=== PATIENT | male | born 1980 | race Caucasian/White ===

== ENCOUNTER 2017-06-21 00:48 | Inpatient (IN) | payer OTHER ==
[2017-06-21] MEDS ORDERED: Acetaminophen 500 MG Tab PO ONE (01:34)
[2017-06-21] MEDS ORDERED: Ondansetron 4 MG Tab.DIS PO ONE (01:34)
[2017-06-21] MEDS ORDERED: Dicyclomine 10 MG Cap PO ONE (01:35)
--- NOTE | 2017-06-21 01:41 | EDM.PDOC ---
ED HPI GENERAL MEDICAL PROBLEM - General Chief Complaint: Abdominal Pain Stated Complaint: ABD PAIN Time Seen by Provider: 06/21/17 01:25 Source of Information: Reports: Patient, RN History Limitations: Reports: No Limitations - History of Present Illness INITIAL COMMENTS - FREE TEXT/NARRATIVE: 37 yo male presents with the local fdc with abdominal pain since late morning of the Jun. Mild nausea, normal BM's x 2 without relief, no fever, no hx of abdominal surgeries. He did notice that his pain seemed to get worse faster after eating supper. No hx of any abdominal surgeries. No regular meds. Has been in fdc locally for about a month. Onset Date: 06/20/17 Duration: Hour(s): Location: Reports: Abdomen Quality: Reports: Ache Severity: Moderate Improves with: Reports: None Worsens with: Reports: Other (? time and ? eating) Context: Reports: Other (unknown) Associated Symptoms: Reports: Nausea/Vomiting (mild nausea, no vomiting.) Treatments EMERGENCY DOCTOR: Reports: Other (see below) (Peptobismol without benefit) Upper Abdomen Pain Score (Numeric/FACES): 8 - Related Data Allergies Allergy/AdvReac Type Severity Reaction Status Date / Time No Known Allergies Allergy Verified 06/21/17 01:15 Home Meds: Home Meds NK [No Known Home Meds] 06/21/17 [History] Past Medical History - Past Health History Medical/Surgical History: Denies Medical/Surgical History - Past Surgical History Musculoskeletal Surgical History: Reports: Other (See Below) Other Musculoskeletal Surgeries/Procedures:: back, ankle and wrist surgeries Dermatological Surgical History: Reports: Other (See Below) Social & Family History - Family History Family Medical History: Noncontributory - Tobacco Use Smoking Status *Q: Former Smoker Years of Tobacco use: 20 Packs/Tins Daily: 1 Used Tobacco, but Quit: Yes Month Tobacco Last Used: 05/2014 Second Hand Smoke Exposure: No - Caffeine Use Caffeine Use: Reports: Coffee, Soda - Recreational Drug Use Recreational Drug Use: Yes Drug Use in Last 12 Months: Yes Recreational Drug Type: Reports: Methamphetamine Recreational Drug Use Frequency: Not Used In Over 1 Month ED ROS GENERAL - Review of Systems Review Of Systems: See Below Constitutional: Reports: No Symptoms HEENT: Reports: No Symptoms Respiratory: Reports: No Symptoms Cardiovascular: Reports: No Symptoms Endocrine: Reports: No Symptoms GI/Abdominal: Reports: Abdominal Pain, Nausea (mild). Denies: Anorexia, Black Stool, Bloody Stool, Constipation, Diarrhea, Decreased Appetite, Distension, Flatus, Hematemesis, Hematochezia, Vomiting : Reports: No Symptoms Musculoskeletal: Reports: No Symptoms Skin: Reports: No Symptoms Neurological: Reports: No Symptoms Psychiatric: Reports: No Symptoms ED EXAM, GI/ABD - Physical Exam Exam: See Below Exam Limited By: No Limitations General Appearance: Alert, WD/WN, No Apparent Distress Eyes: Bilateral: Normal Appearance Ears: Normal External Exam, Normal Canal, Hearing Grossly Normal Nose: Normal Inspection, Normal Mucosa, No Blood Throat/Mouth: Normal Inspection, Normal Lips, Normal Teeth, Normal Oropharynx, Normal Voice, No Airway Compromise Head: Atraumatic, Normocephalic Neck: Normal Inspection, Supple, Non-Tender Respiratory/Chest: No Respiratory Distress, Lungs Clear, Normal Breath Sounds, No Accessory Muscle Use Cardiovascular: Regular Rate, Rhythm, No Edema GI/Abdominal Exam: Normal Bowel Sounds, Soft, No Distention, No Mass, Tender ( diffusely). No: Distended, Guarding, Rigid, Rebound, Abnormal Bowel Sounds Back Exam: Normal Inspection. No: CVA Tenderness (R), CVA Tenderness (L) Extremities: Normal Inspection, Normal Range of Motion, Non-Tender, No Pedal Edema Neurological: Alert, Oriented, CN II-XII Intact, Normal Cognition, No Motor/ Sensory Deficits Psychiatric: Normal Affect, Normal Mood Skin Exam: Warm, Dry, Intact, Normal Color, No Rash Lymphatic: No Adenopathy Course - Vital Signs Last Recorded V/S: Last Vital Signs Temp 37.0 C 06/21/17 01:09 Pulse 88 06/21/17 01:09 Resp 20 06/21/17 01:09 BP 145/82 H 06/21/17 01:09 Pulse Ox 99 06/21/17 01:09 - Orders/Labs/Meds Orders: Active Orders 24 hr Category Date Time Status Abdomen Pelvis w Cont [CT] Stat Exams 06/21/17 02:10 Taken Sodium Chloride 0.9% [Normal Saline] 100 ml Med 06/21/17 02:30 Active IV ASDIRECTED Medication Orders Sodium Chloride (Normal Saline) 100 mls @ 3 mls/sec IV ASDIRECTED SHANTELL Last Admin: 06/21/17 02:41 Dose: 3 mls/sec Labs: Laboratory Tests 06/21/17 06/21/17 Range/Units 01:43 01:43 WBC 24.2 H (4.5-11.0) K/uL RBC 5.43 (4.30-5.90) M/uL Hgb 15.9 H (12.0-15.0) g/dL Hct 45.5 (40.0-54.0) % MCV 84 (80-98) fL MCH 29 (27-31) pg MCHC 35 (32-36) % Plt Count 246 (150-400) K/uL Sodium 141 (140-148) mmol/L Potassium 3.6 (3.6-5.2) mmol/L Chloride 103 (100-108) mmol/L Carbon Dioxide 29 (21-32) mmol/L Anion Gap 9.3 (5.0-14.0) mmol/L BUN 14 (7-18) mg/dL Creatinine 1.0 (0.8-1.3) mg/dL Est Cr Clr Drug Dosing 99.18 mL/min Estimated GFR (MDRD) > 60 (>60) Glucose 130 H (74-106) mg/dL Calcium 9.0 (8.5-10.1) mg/dL Total Bilirubin 0.8 (0.2-1.0) mg/dL AST 20 (15-37) U/L ALT 47 (12-78) U/L Alkaline Phosphatase 68 (46-116) U/L Total Protein 6.5 (6.4-8.2) g/dL Albumin 3.9 (3.4-5.0) g/dL Globulin 2.6 (2.3-3.5) g/dL Albumin/Globulin Ratio 1.5 (1.2-2.2) Lipase 95 (73-393) U/L Meds: Medications Generic Name Dose Route Start Last Admin Trade Name Freq PRN Reason Stop Dose Admin Sodium Chloride 100 mls @ 3 mls/sec 06/21/17 02:30 06/21/17 02:41 Normal Saline IV 3 mls/sec ASDIRECTED SHANTELL Administration Discontinued Medications Generic Name Dose Route Start Last Admin Trade Name Freq PRN Reason Stop Dose Admin Acetaminophen 1,000 mg 06/21/17 01:34 06/21/17 01:56 Tylenol Extra Strength PO 06/21/17 01:35 1,000 mg ONETIME ONE Administration Dicyclomine HCl 20 mg 06/21/17 01:35 06/21/17 01:48 Bentyl PO 06/21/17 01:36 20 mg ONETIME ONE Administration Hydromorphone HCl 0.5 mg 06/21/17 02:11 06/21/17 02:15 Dilaudid IVPUSH 06/21/17 02:12 0.5 mg ONETIME ONE Administration Lactated Ringer's 1,000 mls @ 1,000 mls/hr 06/21/17 01:57 06/21/17 02:07 Ringers, Lactated IV 06/21/17 02:56 1,000 mls/hr BOLUS ONE Administration Iopamidol 116 ml 06/21/17 02:15 06/21/17 02:41 Isovue-300 (61%) IV 116 ml . DIRECTED SHANTELL Administration Ondansetron HCl 4 mg 06/21/17 01:34 06/21/17 01:43 Zofran Odt PO 06/21/17 01:35 4 mg ONETIME ONE Administration - Radiology Interpretation CT Results Date: 06/21/17 Departure - Departure Time of Disposition: 03:35 Disposition: Admitted As Inpatient 64 Condition: Fair Clinical Impression: Appendicitis Qualifiers: Appendicitis type: acute appendicitis Acute appendicitis type: with localized peritonitis Qualified Code(s): K35.3 - Acute appendicitis with localized peritonitis - Discharge Information Referrals: PCP,None [Primary Care Provider] - Forms: ED Department Discharge - My Orders Last 24 Hours: My Active Orders 06/21/17 02:10 Abdomen Pelvis w Cont [CT] Stat 06/21/17 02:30 Sodium Chloride 0.9% [Normal Saline] 100 ml IV ASDIRECTED - Assessment/Plan Last 24 Hours: My Active Orders 06/21/17 02:10 Abdomen Pelvis w Cont [CT] Stat 06/21/17 02:30 Sodium Chloride 0.9% [Normal Saline] 100 ml IV ASDIRECTED
[2017-06-21] MEDS ORDERED: Lactated Ringers 1,000 ML IV ONE (01:57)
[2017-06-21] MEDS ORDERED: HYDROmorphone 0.5 MG/0.5 ML Syringe IVPUSH ONE (02:11)
[2017-06-21] MEDS ORDERED: Iopamidol 612 MG/ML 150 ML Bottle IV SCH (02:15)
[2017-06-21] MEDS ORDERED: Sodium Chloride 0.9% 100 ML IV SCH (02:30)
[2017-06-21] MEDS ORDERED: Neostigmine Methylsulfate 1 MG/ML 5 ML Syringe ONE (04:02)
[2017-06-21] MEDS ORDERED: Succinylcholine 200 MG/10 ML MDV ONE (04:02)
[2017-06-21] MEDS ORDERED: Glycopyrrolate 0.2 MG/ML 5 ML MDV ONE (04:02)
[2017-06-21] MEDS ORDERED: Dexamethasone 4 MG/ML SDV ONE (04:02)
[2017-06-21] MEDS ORDERED: Propofol 200 MG/20 ML SDV ONE (04:02)
[2017-06-21] MEDS ORDERED: fentaNYL 250 MCG/5 ML SDV ONE (04:02)
[2017-06-21] MEDS ORDERED: Midazolam 1 MG/ML 2 ML SDV ONE (04:02)
[2017-06-21] MEDS ORDERED: Rocuronium 50 MG/5 ML Vial ONE (04:02)
[2017-06-21] MEDS ORDERED: Ondansetron 4 MG/2 ML SDV ONE (04:02)
[2017-06-21] MEDS ORDERED: cefOXitin 2 GM Vial ONE (04:05)
[2017-06-21] MEDS ORDERED: Lidocaine 1% with EPINEPHrine 1:100,000 50 ML MDV ONE (04:06)
[2017-06-21] MEDS ORDERED: Bupivacaine 0.5% 50 ML MDV ONE (04:06)
[2017-06-21] MEDS ORDERED: Lactated Ringers 1,000 ML ONE ×2 (04:32→05:12)
[2017-06-21] MEDS ORDERED: fentaNYL 100 MCG/2 ML SDV ONE (05:31)
[2017-06-21] MEDS ORDERED: Ondansetron 4 MG/2 ML SDV IVPUSH PRN (05:51)
[2017-06-21] MEDS ORDERED: hydrOXYzine HCl 100 MG/2 ML SDV IM PRN (05:51)
[2017-06-21] MEDS ORDERED: fentaNYL 100 MCG/2 ML SDV IVPUSH PRN (05:51)
[2017-06-21] MEDS ORDERED: Meperidine PF 100 MG/ML Syringe IM ONE (05:56)
[2017-06-21] MEDS ORDERED: Ketorolac 60 MG/2 ML SDV ONE (05:59)
[2017-06-21] MEDS ORDERED: Lactated Ringers 1,000 ML IV SCH (06:00)
[2017-06-21] MEDS: Ketorolac 30 MG/ML SDV IVPUSH SCH ×2 (09:43→12:26)
[2017-06-21] MEDS: Acetaminophen/HYDROcodone 325-5 MG Tab PO PRN ×2 (10:03→15:47)
[2017-06-21] MEDS ORDERED: FLU Vacc QS 2017-18 (36mos UP)/PF 60 MCG/0.5 ML Syringe IM ONE (11:00)
[2017-06-21] MEDS ORDERED: Diphtheria,Pertussis(Acell),Tetanus Vaccine 0.5 ML SDV IM ONE (11:00)
--- NOTE | 2017-06-21 15:36 | PCM.DCSUM1 ---
Discharge Summary - Hospital Course Free Text/Narrative:: This 37 year old white male resident of the local [place] developed onset of abdominal pain yesterday in the late morning. This became worse causing him to be brought to the ER last night. He was found to be afebrile, diffusely tender , had a WBC of 28,[address] scan with acute appendicitis. He was taken to the OR early this morning after receiving 2 grams of Mefoxin IV and underwent a laparoscopic appendectomy. He was found to have acute, non-perforated appendicitis. He currently feels well, has ambulated, voided and is tolerating a regular diet. He is discharged at this time in good condition. - Discharge Data Discharge Date: 06/21/17 Discharge Disposition: DC/Tfer to Court of [facility] Enf 21 Condition: Good - Discharge Diagnosis/Problem(s) (1) Appendicitis SNOMED Code(s): 94984044 ICD Code: K37 - UNSPECIFIED APPENDICITIS Status: Acute Current Visit: Yes Qualifiers: Appendicitis type: acute appendicitis Acute appendicitis type: with localized peritonitis Qualified Code(s): K35.3 - Acute appendicitis with localized peritonitis - Patient Summary/Data Operative Procedure(s) Performed: Laparoscopic appendectomy Hospital Course: See above narrative. - Patient Instructions Diet: Usual Diet as Tolerated Activity: No Strenuous Activities (For two weeks) Driving: Do Not Drive Showering/Bathing: Shower in AM Notify Provider of: Fever, Increased Pain, Swelling and Redness, Drainage, Nausea and/or Vomiting - Discharge Plan Prescriptions/Med Rec: Acetaminophen/HYDROcodone [Wyckoff 325-5 MG] 1 - 2 tab PO Q4H PRN #30 tablet PRN Reason: Pain (Moderate 4-6) Docusate Sodium [Colace] 100 mg PO BID #50 capsule Ketorolac [Toradol] 10 mg PO Q6H 4 Days #16 tab Home Medications: Home Meds Acetaminophen/HYDROcodone [Wyckoff 325-5 MG] 1 - 2 tab PO Q4H PRN #30 tablet 06/21 [Rx] Docusate Sodium [Colace] 100 mg PO BID #50 capsule 06/21/17 [Rx] Ketorolac [Toradol] 10 mg PO Q6H 4 Days #16 tab 06/21/17 [Rx] Other Amb Orders: Assertion Communication Order [AST] Location: Determined By Patient Patient Handouts: Laparoscopic Appendectomy, Adult, Care After, Constipation, Adult Forms: ED Department Discharge Referrals: PCP,None [Primary Care Provider] - Bennie Jaimes MD [Physician] - (See me in [facility] the week after next (about two weeks).) - Discharge Summary/Plan Comment DC Time >30 min.: Yes Discharge Summary/Plan Comment: See me in [facility] in about two weeks. - Patient Data Vitals - Most Recent: Last Vital Signs Temp 99.1 F 06/21/17 06:20 Pulse 97 06/21/17 09:54 Resp 18 06/21/17 09:54 BP 109/72 06/21/17 09:54 Pulse Ox 96 06/21/17 09:54 Weight - Most Recent: 169 lb 1.513 oz I&O - Last 24 hours: Intake & Output 06/21/17 06/21/17 06/21/17 06:59 14:59 22:59 Intake Total 360 Output Total 1100 300 Balance -740 -300 Med Orders - Current: Current Medications Hydrocodone Bitart/Acetaminophen (Wyckoff 325-5 Mg) 2 tab PO Q4H PRN PRN Reason: Pain (moderate 4-6) Last Admin: 06/21/17 10:03 Dose: 2 tab Fentanyl (Sublimaze) 50 mcg IVPUSH Q1H PRN PRN Reason: Pain (severe 7-10) Hydroxyzine HCl (Vistaril) 50 mg IM Q4H PRN PRN Reason: Abdominal Pain Sodium Chloride (Normal Saline) 100 mls @ 3 mls/sec IV ASDIRECTED [facility] Last Admin: 06/21/17 02:41 Dose: 3 mls/sec Lactated Ringer's (Ringers, Lactated) 1,000 mls @ 125 mls/hr IV ASDIRECTED [facility] Last Admin: 06/21/17 12:00 Dose: 125 mls/hr Ketorolac Tromethamine (Toradol) 30 mg IVPUSH Q6H [facility] Stop: 06/26/17 05:58 Last Admin: 06/21/17 12:26 Dose: 30 mg Ondansetron HCl (Zofran) 4 mg IVPUSH Q6H PRN PRN Reason: Nausea/Vomiting Discontinued Medications Acetaminophen (Tylenol Extra Strength) 1,000 mg PO ONETIME ONE Stop: 06/21/17 01:35 Last Admin: 06/21/17 01:56 Dose: 1,000 mg Bupivacaine HCl (Marcaine 0.5%) Confirm Administered Dose 50 ml .ROUTE .STK-MED ONE Stop: 06/21/17 04:07 Last Admin: 06/21/17 05:30 Dose: 10 ml Cefoxitin Sodium (Mefoxin) 2 gm .ROUTE .STK-MED ONE Stop: 06/21/17 04:06 Dexamethasone (Dexamethasone) Confirm Administered Dose 4 mg .ROUTE .STK-MED ONE Stop: 06/21/17 04:03 Dicyclomine HCl (Bentyl) 20 mg PO ONETIME ONE Stop: 06/21/17 01:36 Last Admin: 06/21/17 01:48 Dose: 20 mg Diphtheria/Tetanus/Acell Pertussis (Adacel) 0.5 ml IM .ONCE ONE Stop: 06/21/17 11:01 Last Admin: 06/21/17 11:28 Dose: 0.5 ml Fentanyl (Sublimaze) Confirm Administered Dose 250 mcg .ROUTE .ST-MED ONE Stop: 06/21/17 04:03 Fentanyl (Sublimaze) Confirm Administered Dose 100 mcg .ROUTE .STK-MED ONE Stop: 06/21/17 05:32 Glycopyrrolate (Robinul) Confirm Administered Dose 1 mg .ROUTE .STK-MED ONE Stop: 06/21/17 04:03 Hydromorphone HCl (Dilaudid) 0.5 mg IVPUSH ONETIME ONE Stop: 06/21/17 02:12 Last Admin: 06/21/17 02:15 Dose: 0.5 mg Lactated Ringer's (Ringers, Lactated) 1,000 mls @ 1,000 mls/hr IV BOLUS ONE Stop: 06/21/17 02:56 Last Admin: 06/21/17 02:07 Dose: 1,000 mls/hr Lactated Ringer's (Ringers, Lactated) Confirm Administered Dose 1,000 mls @ as directed .ROUTE .STK-MED ONE Stop: 06/21/17 04:33 Lactated Ringer's (Ringers, Lactated) Confirm Administered Dose 1,000 mls @ as directed .ROUTE .STK-MED ONE Stop: 06/21/17 05:13 Influenza Virus Vaccine (Fluzone Quad [id number]) 60 mcg IM ONETIME ONE Stop: 06/21/17 11:01 Last Admin: 06/21/17 11:26 Dose: 60 mcg Iopamidol (Isovue-300 (61%)) 116 ml IV . DIRECTED SHANTELL Last Admin: 06/21/17 02:41 Dose: 116 ml Ketorolac Tromethamine (Toradol) Confirm Administered Dose 60 mg .ROUTE .[facility]- MED ONE Stop: 06/21/17 06:00 Lactated Ringer's (Ringers, Lactated) 1,000 ml IRR .ST-MED ONE Stop: 06/21/17 04:31 Last Admin: 06/21/17 04:30 Dose: 1,000 ml Lidocaine/Epinephrine (Xylocaine 1% With Epinephrine 1:100,000) Confirm Administered Dose 50 ml .ROUTE .[facility]-MED ONE Stop: 06/21/17 04:07 Last Admin: 06/21/17 05:30 Dose: 10 ml Meperidine HCl (Demerol) 100 mg IM ONETIME ONE Stop: 06/21/17 05:57 Last Admin: 06/21/17 06:18 Dose: 50 mg Midazolam HCl (Versed 1 Mg/Ml) Confirm Administered Dose 2 mg .ROUTE .ST-MED ONE Stop: 06/21/17 04:03 Neostigmine Methylsulfate (Neostigmine) Confirm Administered Dose 5 mg .ROUTE .[facility]-MED ONE Stop: 06/21/17 04:03 Ondansetron HCl (Zofran Odt) 4 mg PO ONETIME ONE Stop: 06/21/17 01:35 Last Admin: 06/21/17 01:43 Dose: 4 mg Ondansetron HCl (Zofran) Confirm Administered Dose 4 mg .ROUTE .ST-MED ONE Stop: 06/21/17 04:03 Propofol (Diprivan 20 Ml) Confirm Administered Dose 200 mg .ROUTE .[facility]-MED ONE Stop: 06/21/17 04:03 Rocuronium [place] (Zemuron) Confirm Administered Dose 50 mg .ROUTE .[facility]-MED ONE Stop: 06/21/17 04:03 Succinylcholine Chloride (Quelicin) Confirm Administered Dose 200 mg .ROUTE .[facility] -MED ONE Stop: 06/21/17 04:03 *Q Meaningful Use (DIS) - VTE *Q VTE Criteria *Q: - Stroke *Q Stroke Criteria *Q: - AMI *Q AMI Criteria *Q:
--- NOTE | 2017-06-23 08:40 | OR ---
DATE OF PROCEDURE: 06/21/2016 PREOPERATIVE DIAGNOSIS: Acute appendicitis. POSTOPERATIVE DIAGNOSIS: Acute nonperforated appendicitis. PROCEDURE: Laparoscopic appendectomy. SURGEON: Bennie Jaimes M.D. ANESTHESIA: General endotracheal. INDICATION: This 37-year-old white male noted onset of abdominal pain at about 1100 yesterday morning. This progressively got worse, which caused him to be brought to the emergency room last night. He was found to be afebrile. He was diffusely tender in his abdomen. His white count was 24,200. A CAT scan of his abdomen and pelvis was performed, which returned acute nonperforated appendicitis. He was taken to the operating room for a laparoscopic appendectomy. He has had no prior abdominal surgery. I counseled him for surgery, including risks and alternatives, and he gave his informed consent to proceed. He is in long-term here in [place]. DESCRIPTION OF PROCEDURE: After adequate general endotracheal anesthesia was obtained, a Mitchell catheter was placed. The leg compression stockings were in place and used during the entire procedure. His abdomen was prepped and draped in the usual sterile fashion. Time- out was held. An infraumbilical semicircular incision was made. Under direct vision, a 12 mm port was introduced into the abdomen through this incision using the Optiview technique. The camera was introduced into the abdomen, and the abdomen was insufflated to a pressure of 20 mmHg with carbon dioxide. No evidence of intraabdominal injury was seen. Under direct vision, a 12 mm port was placed in the right upper quadrant and another one in the left lower quadrant. The appendix was noted to be distended, erythematous, with an exudate on it, consistent with acute nonperforated appendicitis. There were some attachments to the retroperitoneum, and these were sharply dissected free. The base of the appendix was dissected free and then the appendix was divided with the endoscopic SHERIN using a blue load. The mesoappendix was then divided with the endoscopic SHERIN using a white load. The appendix was placed in a sample retrieval bag and elevated up through the anterior abdominal wall via the right upper quadrant port site. It was delivered from the field. The port was re- introduced back into the abdomen. The right lower quadrant was irrigated and suctioned dry. Hemostasis was obtained with electrocautery. The fascial closure device was then used to place 0 Vicryl stitches in the right upper and left lower quadrant fascial defects. These were tied down after they were both placed. The infraumbilical port was removed with an interrupted stitch of 0 Vicryl used to close this fascial defect. Before tying the stitch down, we did evacuate as much CO2 from the abdomen as we could. The stitch was then tied down. Lidocaine 1% with epinephrine in a 50:50 mix with 0.5% Marcaine was infiltrated about all incisions. Vicryl 4-0 using a subcuticular stitch was placed to approximate the skin of the incisions. Dermabond was applied. The anesthesia was reversed. He was extubated and brought to the recovery room in good condition. Bennie Jaimes MD /[id number] MTDD
== END 2017-06-21 15:56 | DRG 343 ==
LOC: JP.ED 00:48 → JP.SDS 03:28 → JP.MS 06:40
PROVIDERS: ADMIT Surgery; ATTEND Surgery
PROC: 0DTJ4ZZ Resection of Appendix, Percutaneous Endoscopic Approach (ICD-10-PCS; principal; 2017-06-21)
DX: K35.89 Other acute appendicitis (principal); Z87.891 Personal history of nicotine dependence
CPT/HCPCS: 36415; 74177; 80053; 83690; 85027; 88304; 90686; 90715; 96361; 96372; 96374; 96375; 99284; 99285-25; A9270-GY; G0010; J0330; J0694; J1100; J1170; J1885; J2175; J2250; J2405; J2704; J2710; J3010; J7030; J7120